=== PATIENT | female | born 1940 | race Caucasian/White ===

== ENCOUNTER 2017-06-06 16:08 | Observation (INO) | payer MEDICARE, OTHER ==
[~2017-06-06] VITALS: Ht 167.6 cm; Wt 59.0 kg
[2017-06-06] MEDS ORDERED: NAMENDA10 MG PO (18:55)
[2017-06-06] MEDS ORDERED: EXELON1 EACH TOP (18:55)
[2017-06-06] MEDS ORDERED: QUETIAPINE FUMA25 MG PO ×2 (18:55)
[2017-06-06] MEDS ORDERED: ROPINIROLE HC0.25 MG PO (18:55)
[2017-06-06] MEDS ORDERED: NITROFURANTOIN100 MG PO (18:55)
[2017-06-06] MEDS ORDERED: CITALOPRAM HBR20 MG PO (18:55)
[2017-06-06] MEDS ORDERED: viberzi PO (18:55)
[2017-06-06] MEDS ORDERED: KETOROLAC TROMETHAMINE 30 MG/ML VIAL IM STA (19:23)
[2017-06-06] MEDS ORDERED: HYDROMORPHONE 1MG/1ML INJ IM STA (19:23)
[2017-06-06] MEDS ORDERED: ONDANSETRON HCL 4 MG ORAL DISINTEGRATING TAB PO ONE (19:30)
--- NOTE | 2017-06-06 21:16 | Diagnostic Imaging Report ---
EXAM: lumbar spine, 3 views, AP, lateral and coned lateral view DATE: 06/06/2017 7:23 PM Time stamp on exam: 1954 hours INDICATION: Left hip and lower back pain COMPARISON: None FINDINGS: BONES: Five lumbar-type vertebral bodies. Minimal anterolisthesis of L5 with respect to S1 likely secondary to degenerative changes. Age indeterminant compression fracture of the L4 vertebral body with approximately 25% loss of vertebral body height. Age indeterminant compression fracture of the L1 vertebral body with minimal loss of height. The bones are demineralized. DISCS: The disc-spaces are well-maintained. JOINTS: Degenerative changes of the sacroiliac joints. Facet arthropathy bilaterally at L5/S1. SOFT TISSUES: Unremarkable IMPRESSION: Age indeterminant compression fracture of the L4 vertebral body with approximately 25% loss of vertebral body height. Age indeterminant compression fracture of the L1 vertebral body with minimal loss of height. Signed by: Dr. Melly Preciado M.D. on 06/06/2017 9:12 PM
--- NOTE | 2017-06-06 21:17 | Diagnostic Imaging Report ---
EXAM: HIP LEFT 2-3 VW (+/- PELVIS) DATE: 06/06/2017 7:23 PM Time stamp on exam: 1938 hours INDICATION: Left hip and lower back pain COMPARISON: None FINDINGS: BONES: No acute fractures. No lytic or blastic lesions. JOINTS: Degenerative changes of the lateral sacroiliac joints and pubic symphysis and bilateral hips. SOFT TISSUES: Large amount of retained stool. IMPRESSION: No evidence of a pelvic or left hip fracture. Signed by: Dr. Melly Preciado M.D. on 06/06/2017 9:13 PM
[2017-06-06 22:55] LABS: BASOPHILS # (AUTO) 0.1 (0.0-0.1); BASOPHILS % 0.5 % (0.0-1.0); EOSINOPHILS # (AUTO) 0.3 (0.0-0.4); EOSINOPHILS % 1.9 % (0.0-6.0); HEMATOCRIT 36.8 % (34.2-44.1); HEMOGLOBIN 11.7 g/dL (12.0-16.0); LYMPHOCYTES # (AUTO) 1.8 (1.0-3.2); MEAN CORPUSCULAR HEMOGLOBIN 30.1 pg (28-32); MEAN CORPUSCULAR HGB CONC 31.8 g/dL (31-35); MEAN CORPUSCULAR VOLUME 94.6 fL (81-99); MONOCYTES # (AUTO) 1.2 (0.2-0.8); MONOCYTES % 8.3 % (4.4-11.3); NEUTROPHILS # (AUTO) 10.5 (2.1-6.9); NEUTROPHILS % 75.7 % (38.7-80.0); PLATELET COUNT 329 x10e3/uL (140-360); RED BLOOD COUNT 3.89 x10e6/uL (3.6-5.1); RED CELL DISTRIBUTION WIDTH 13.5 % (11.7-14.4)
[2017-06-06 23:05] LABS: INR 0.91; PARTIAL THROMBOPLASTIN TIME 27.8 seconds (23.8-35.5); PROTHROMBIN TIME 12.7 seconds (11.9-14.5)
[2017-06-06 23:15] LABS: ANION GAP 13.5 mmol/L (8-16); CALCIUM 9.2 mg/dL (8.4-10.2); CREATININE, SERUM 0.92 mg/dL (0.57-1.11); POTASSIUM 4.5 mmol/L (3.5-5.1)
[2017-06-07] MEDS ORDERED: ONDANSETRON HCL INJ 2 MG/ML VIAL IV PRN
[2017-06-07 00:40] VITALS: BP 184/81
[2017-06-07 01:00] VITALS: BP 184/81
[2017-06-07 07:44] VITALS: BP 131/64
[2017-06-07] MEDS ORDERED: VIBERZI 75 MG PO SCH (09:00)
[2017-06-07] MEDS ORDERED: MEMANTINE 10 MG TAB PO SCH (09:00)
[2017-06-07] MEDS: HYDROMORPHONE 1MG/1ML INJ IV PRN ×2 (09:32→14:43)
[2017-06-07] MEDS: VIBERZI PO SCH ×2 (09:34→17:16)
[2017-06-07] MEDS: RIVASTIGMINE PATCH 4.6MG/24 HOURS PATCH TD SCH (09:34)
[2017-06-07] MEDS: CITALOPRAM HYDROBROMIDE 20 MG TAB PO SCH (09:34)
[2017-06-07] MEDS: NAMENDA 28MG NON FORMULARY ITEM PO SCH (09:34)
[2017-06-07] MEDS: NITROFURANTOIN 50 MG CAP PO SCH (09:34)
[2017-06-07] MEDS: ROPINIROLE HCL 0.25 MG TAB PO SCH ×2 (09:34→17:16)
[2017-06-07] MEDS: QUETIAPINE FUMARATE 25 MG TAB PO SCH ×2 (09:34)
[2017-06-07] MEDS ORDERED: DEXTROSE 5%/0.9% SOD CHL 1,000 ML IV ONE (10:30)
[2017-06-07 12:43] VITALS: BP 116/63
[2017-06-07] MEDS ORDERED: MAGNESIUM HYDROXIDE 30 ML UDC PO PRN (14:15)
[2017-06-07] MEDS ORDERED: CITRATE OF MAGNESIA 300ML BOTTLE PO PRN (14:15)
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
[2017-06-07] MEDS: DOCUSATE SODIUM LIQD 100 MG/10 ML UDC NG SCH (17:16)
[2017-06-07 17:25] VITALS: BP 124/63
[2017-06-07 20:00] VITALS: BP 134/74
[2017-06-07] MEDS: HEPARIN SOD (PORCINE) 5,000 UNIT/ML VIAL SC SCH (21:29)
[2017-06-08] VITALS: BP 133/60
[2017-06-08 04:00] VITALS: BP 131/65
--- NOTE | 2017-06-08 07:12 | Diagnostic Imaging Report ---
EXAMINATION: MRI of the lumbar spine without contrast HISTORY: Low back pain, L1 and L4 compression fracture, sciatica COMPARISON: Lumbar spine x-ray on 06/06/2017 TECHNIQUE: Sagittal T1, T2, STIR; axial T2 and proton density. FINDINGS: It is assumed that there are 5 lumbar vertebrae. Curvature/Alignment: Normal lordosis. Vertebrae: -Mild reason perhaps acute to subacute compression fracture of the L1 vertebral body, with depression of the superior endplate by approximately 10%, mild adjacent subchondral bone marrow edema. No posterior retropulsion and no canal stenosis. Mild chronic compression fracture of the L4 vertebral body with minimal anterior wedging and decreased vertebral body height by approximately 50%. No posterior retropulsion and no canal stenosis. No infection or neoplasm. Conus: Normal, terminating at L1 Cauda equina: Unremarkable. Lower thoracic: Unremarkable. Paraspinal soft tissues: Mild to moderate in paraspinal musculature atrophy. Partially visualized cholelithiasis.. Degenerative changes: L1-L2: Minimal symmetric disc bulge without stenosis L2-L3: Minimal symmetric testicles without stenoses L3-L4: Minimal symmetric disc bulge without stenosis L4-L5: Minimal symmetric this portion of facet arthrosis with a small represented a facet synovial cyst. No canal or foraminal stenoses. L5-S1: Bilateral L5 pars interarticularis is spondylolysis with minimal anterolisthesis. No canal or foraminal stenosis. IMPRESSION: 1. Unchanged mild likely recent, perhaps subacute compression fracture of the L1 vertebral body, without posterior retropulsion or canal stenosis. 2. Unchanged mild chronic compression fracture of the L4 vertebral body without posterior retropulsion or canal stenosis. 3. Grade 1 spondylolisthesis at L5-S1 due to bilateral spondylolysis. 4. No significant spinal canal or foraminal stenosis. No evidence of nerve root compression. 5. Incidentally noted cholelithiasis. Signed by: Dr. Yolanda Posey M.D. on 06/08/2017 7:09 AM
[2017-06-08 08:03] VITALS: BP 130/69
[2017-06-08] MEDS ORDERED: ACETAMINOPHEN 325 MG TAB PO PRN ×2 (08:45→17:15)
[2017-06-08] MEDS: VIBERZI PO SCH ×2 (09:00→16:57)
[2017-06-08] MEDS: NAMENDA 28MG NON FORMULARY ITEM PO SCH (09:00)
[2017-06-08] MEDS: CITALOPRAM HYDROBROMIDE 20 MG TAB PO SCH (09:40)
[2017-06-08] MEDS: QUETIAPINE FUMARATE 25 MG TAB PO SCH ×2 (09:40→20:42)
[2017-06-08] MEDS: HEPARIN SOD (PORCINE) 5,000 UNIT/ML VIAL SC SCH ×2 (09:40→21:00)
[2017-06-08] MEDS: RIVASTIGMINE PATCH 4.6MG/24 HOURS PATCH TD SCH (09:40)
[2017-06-08] MEDS: DOCUSATE SODIUM LIQD 100 MG/10 ML UDC NG SCH ×2 (09:40→16:56)
[2017-06-08] MEDS: ROPINIROLE HCL 0.25 MG TAB PO SCH ×2 (09:40→16:56)
[2017-06-08 11:50] VITALS: BP 142/66
[2017-06-08 16:00] VITALS: BP 131/65
[2017-06-08] MEDS ORDERED: ACETAMINOPHEN 325 MG TAB PO ONE (17:15)
--- NOTE | 2017-06-08 18:00 | Diagnostic Imaging Report ---
PROCEDURE: CHEST SINGLE (PORTABLE) 1720 hrs. COMPARISON: None. INDICATIONS: FEVER FINDINGS: The patient's chin overlies the upper chest. LUNGS: The lung volumes are low with mild eventration of the left diaphragm. There is linear atelectasis of the overlying lung. A round dense nodule in the lateral left midlung field measures 7 mm. PLEURA: The costophrenic angles are sharp. No pneumothorax. HEART \T\ MEDIASTINUM: The heart is normal in size. There are calcified left these lymph nodes. There are calcific agent throughout the tracheobronchial tree. BONES \T\ SOFT TISSUES: No focal osseous lesions. CONCLUSION: Low lung volumes with subsegmental atelectasis of the left lung base. Healed granulomatous inflammation. No evidence of infiltrate on provided images. Dictated by: Dani Nix M.D. on 06/08/2017 at 18:07 Electronically approved by: Dani Nix M.D. on 06/08/2017 at 18:07
[2017-06-08] MEDS: LEVOFLOXACIN 500MG/D5W 100ML 100 ML IV SCH (18:06)
[2017-06-08 18:07] LABS: BILIRUBIN,URINE NEGATIVE (NEGATIVE); KETONES,URINE NEGATIVE (NEGATIVE); LEUKOCYTE ESTERASE ,URINE 2+ (NEGATIVE); URINE UROBILINOGEN 0.2 mg/dL (0.2 - 1)
[2017-06-08 18:12] LABS: CLARITY,URINE CLOUDY (CLEAR); COLOR,URINE YELLOW (YELLOW); NITRITE,URINE POSITIVE (NEGATIVE); PROTEIN,URINE DIPSTICK TRACE (NEGATIVE)
[2017-06-08 18:20] LABS: BACTERIA,URINE MANY /HPF
[2017-06-08 18:21] LABS: EPITHELIAL CELLS,URINE RARE /LPF; RBC,URINE 0-5 /HPF (0-5)
[2017-06-08 20:30] VITALS: BP 126/79
[2017-06-08] MEDS: NITROFURANTOIN 50 MG CAP PO SCH (20:42)
[2017-06-09] VITALS (7 sets, daily range): BP systolic 113–184; BP diastolic 66–87
[2017-06-09 06:53] LABS: BASOPHILS # (AUTO) 0.1 (0.0-0.1); BASOPHILS % 0.7 % (0.0-1.0); EOSINOPHILS # (AUTO) 0.3 (0.0-0.4); EOSINOPHILS % 2.6 % (0.0-6.0); HEMATOCRIT 34.1 % (34.2-44.1); LYMPHOCYTES # (AUTO) 1.6 (1.0-3.2); LYMPHOCYTES % 14.1 % (18.0-39.1); MEAN CORPUSCULAR HEMOGLOBIN 30.1 pg (28-32); MEAN CORPUSCULAR HGB CONC 32.3 g/dL (31-35); MEAN CORPUSCULAR VOLUME 93.4 fL (81-99); MONOCYTES % 8.3 % (4.4-11.3); NEUTROPHILS # (AUTO) 8.5 (2.1-6.9); NEUTROPHILS % 73.8 % (38.7-80.0); PLATELET COUNT 294 x10e3/uL (140-360); RED BLOOD COUNT 3.65 x10e6/uL (3.6-5.1)
[2017-06-09 07:20] LABS: ALANINE AMINOTRANSFERASE 13 IU/L (0-55); ALBUMIN 3.2 g/dL (3.5-5.0); ALBUMIN/GLOBULIN RATIO 0.8 (0.8-2.0); ALKALINE PHOSPHATASE 70 IU/L (40-150); ANION GAP 9.9 mmol/L (8-16); BLOOD UREA NITROGEN 13 mg/dL (7-26); BUN/CREATININE RATIO 16 (6-25); CALCIUM 9.3 mg/dL (8.4-10.2); CARBON DIOXIDE 31 mmol/L (22-29); CHLORIDE 105 mmol/L (98-107); CREATININE, SERUM 0.79 mg/dL (0.57-1.11); EST GLOMERULAR FILTRATION RATE > 60 ML/MIN (60-); GLUCOSE 106 mg/dL (74-118); POTASSIUM 3.9 mmol/L (3.5-5.1); SODIUM 142 mmol/L (136-145)
[2017-06-09] MEDS: CITALOPRAM HYDROBROMIDE 20 MG TAB PO SCH (08:54)
[2017-06-09] MEDS: QUETIAPINE FUMARATE 25 MG TAB PO SCH ×2 (08:54→21:00)
[2017-06-09] MEDS: HEPARIN SOD (PORCINE) 5,000 UNIT/ML VIAL SC SCH ×2 (08:55→21:00)
[2017-06-09] MEDS: RIVASTIGMINE PATCH 4.6MG/24 HOURS PATCH TD SCH (08:55)
[2017-06-09] MEDS: VIBERZI PO SCH ×2 (08:55→17:00)
[2017-06-09] MEDS: NAMENDA 28MG NON FORMULARY ITEM PO SCH (08:55)
[2017-06-09] MEDS: DOCUSATE SODIUM LIQD 100 MG/10 ML UDC NG SCH ×2 (08:55→17:24)
[2017-06-09] MEDS: ROPINIROLE HCL 0.25 MG TAB PO SCH ×2 (08:55→17:24)
[2017-06-09] MEDS: LEVOFLOXACIN 500MG/D5W 100ML 100 ML IV SCH (17:24)
--- NOTE | 2017-06-09 17:40 | Consultation ---
DATE OF CONSULTATION: June 09, 2017 REASON FOR CONSULTATION: 1. Debility. 2. Dementia. 3. Apparently old fracture. The patient's history is mainly from medical records, from the chart and from the patient's son. The patient is an unfortunate 77-year-old female with a history of dementia who came into the hospital after complaining of severe pain in her back. According to the son, she had severe pain. She had fallen at home. Initial workup showed that she had a compression fracture. However, the fracture appears to be old. She has since improved significantly. According to the son, whenever they touched her back caused severe pain. Right now she is doing a lot better. She has undergone workup. . PAST MEDICAL HISTORY: Dementia. SOCIAL HISTORY: Lives with her caretakers in a 2-story home. She has 24-hour caretakers. She was ambulatory with hand-held assist. Over the past 4 months, she has had decline in function overall. HABITS: Denies. Review of the MRI of the lumbar spine showed degenerative changes, unchanged, mild, likely recent, perhaps subacute, compression fracture of L1 vertebral body without posterior canal stenosis. Unchanged, mild chronic compression fracture L4 vertebral body. Grade 1 spondylolisthesis at L5-S1 due to bilateral spondylosis. No significant spinal canal foraminal stenosis. She had a hip x-ray which showed no evidence of pelvic fracture or hip fracture. She had a lumbar spine x-ray which showed age-indeterminate compression fracture of L4 as well as L1. Chest x-ray which showed low lung volumes. LABORATORY DATA: White blood cell count of 11.5, hemoglobin 11, hematocrit 34.1, platelets 294,000, sodium 142, potassium 3.9, BUN 13, creatinine 0.79. Rehab-bruno, the patient ambulated with therapy and today walked 300 feet plus another 80 feet with hand-held assist. PHYSICAL EXAMINATION GENERAL: The patient is awake, very pleasant, but utterly confused. HEENT: Eyes: Gaze is conjugate. NECK: No JVD, nontender with palpation. BACK: Palpated along the thoracic spine and lumber spine. She did not grimace or complain of any pain at all. HEART: Regular. LUNGS: Clear. ABDOMEN: Nontender, nondistended. EXTREMITIES: Functional range of motion to the arms. She had a hard time following commands, but she could move her legs. No obvious signs of DVT. Unable to elicit patella, DTRs, but no increased tone with passive range of motion to the legs. Manual muscle testing: She did have at least 3/5 strength in the upper extremities and I think she has more strength. She is demented enough where she really resist against me in the lower extremities. She could flex and extend her hip a little bit, but she actually ambulated better earlier today. No new sensory loss at this time. IMPRESSION 1. Debilitation. 2. Subacute L1, L4 compression fracture. 3. Patient with significant confusion. PLAN: I spoke with the son at length. At this time, they are looking at having somebody stay with her at home and try to move her back home because she wants to be home and being in her own situation might make it better. I have taken the liberty of ordering a gait belt. I have spoken with the nurses about ordering this so that whenever somebody walks with her if she should stumble or lose balance somebody can hold onto the gait belt. At this point, they really do want to go home. Thank you once again for allowing me to participate in the care of this pleasant but unfortunate patient. Job#: [id number]
[2017-06-09] MEDS: NITROFURANTOIN 50 MG CAP PO SCH (21:00)
[2017-06-10] VITALS: BP 118/65
[2017-06-10 04:55] VITALS: BP 133/81
[2017-06-10 08:00] VITALS: BP 140/76
[2017-06-10] MEDS: RIVASTIGMINE PATCH 4.6MG/24 HOURS PATCH TD SCH (09:00)
[2017-06-10] MEDS: VIBERZI PO SCH (09:00)
[2017-06-10] MEDS: CITALOPRAM HYDROBROMIDE 20 MG TAB PO SCH (09:00)
[2017-06-10] MEDS: NAMENDA 28MG NON FORMULARY ITEM PO SCH (09:00)
[2017-06-10] MEDS: DOCUSATE SODIUM LIQD 100 MG/10 ML UDC NG SCH (09:00)
[2017-06-10] MEDS: QUETIAPINE FUMARATE 25 MG TAB PO SCH (09:00)
[2017-06-10] MEDS: HEPARIN SOD (PORCINE) 5,000 UNIT/ML VIAL SC SCH (09:00)
[2017-06-10] MEDS: ROPINIROLE HCL 0.25 MG TAB PO SCH (09:00)
[2017-06-10 12:00] VITALS: BP 126/68
[2017-06-10] MEDS ORDERED: LEVAQUIN500 MG PO (14:19)
[2017-06-10 16:00] VITALS: BP 125/80
--- NOTE | 2017-06-10 16:57 | Discharge Summary ---
A patient of Dr. Horne. Patient admitted to hospital on June 07 with severe back pain several days after a fall. Found to have 2 compression fractures. MRI revealed that one was old and one was subacute. However, she became febrile, was found to have a urinary tract infection, klebsiella. She was treated with Levaquin. She has a thyra-ffa-jbpts caregiver. She is a nonsmoker. No alcohol use. Retired schoolteacher. She improved. She was mobilized, was able to walk with physical therapy. Initial attempt was made to transfer the patient to [facility], but transfer was declined. She will follow up, however, with her family doctor, Dr. Horne. Continue her home medications. Will complete a course of Levaquin. Was also given prescription for 20 tablets of Tylenol No. 3 for pain. Her white count on admission was 14,000, hemoglobin 11.7. Urine had 11-20 white cells. Cultures grew Klebsiella pneumoniae. Discharged to continue Colace, Requip, Exelon patch, Seroquel, Celexa, nitrofurantoin, Levaquin additional 5 days, Tylenol No. 3, and Remeron as well as Namenda. Patient will follow with Dr. Horne. Job#: [id number] EV
== END 2017-06-10 16:43 | disposition home or self-care (01) ==
LOC: ER 16:08 → MED/SURG2 06-07 00:11
PROVIDERS: ADMIT Internal Medicine; ATTEND Internal Medicine
DX: S32.010A Wedge compression fracture of first lumbar vertebra, initial encounter for closed fracture (principal); M48.56XA Collapsed vertebra, not elsewhere classified, lumbar region, initial encounter for fracture; N39.0 Urinary tract infection, site not specified; B96.1 Klebsiella pneumoniae [K. pneumoniae] as the cause of diseases classified elsewhere; G30.9 Alzheimer's disease, unspecified; F02.80 Dementia in other diseases classified elsewhere, unspecified severity, without behavioral disturbance, psychotic disturbance, mood disturbance, and anxiety; F05 Delirium due to known physiological condition; R53.81 Other malaise; K59.00 Constipation, unspecified; W06.XXXA Fall from bed, initial encounter; Y92.003 Bedroom of unspecified non-institutional (private) residence as the place of occurrence of the external cause
CPT/HCPCS: 36415 ×2; 71010; 72100; 72148; 73502; 80048; 80053; 81001; 85025 ×2; 85610; 85730; 87040; 87086; 87186; 96360; 97116 ×3; 97161; 97530 ×2; 99284; G0378 ×4; G8978 ×2; G8979 ×2; J1170 ×2; J1644 ×4; J1885; J1956 ×2; J2405; J7042